=== PATIENT | female | born 1970 | race Caucasian/White ===

== ENCOUNTER 2017-05-31 09:36 | Day surgery (SDC) | payer OTHER ==
[2017-05-31] MEDS ORDERED: ceFAZolin 2 GM/50 ML 2 GM/50 ML BAG IV ONE (09:46)
[2017-05-31 10:05] LABS: HCG UR QUAL NEGATIVE
[2017-05-31] MEDS ORDERED: LACTATED RINGERS 1,000 ML IV ONE ×2 (10:10→11:48)
[2017-05-31] MEDS ORDERED: LIDOCAINE-MPF 2% 5 ML VIAL IM ONE (11:00)
[2017-05-31] MEDS ORDERED: PROPOFOL 200 MG/20 ML VIAL IVP ONE (11:00)
[2017-05-31] MEDS ORDERED: MIDAZOLAM 2 MG/2 ML VIAL IVP ONE (11:00)
[2017-05-31] MEDS ORDERED: ONDANSETRON 4 MG/2 ML VIAL IVP ONE (11:00)
[2017-05-31] MEDS ORDERED: DEXAMETHASONE 4 MG/ML VIAL IVP ONE (11:00)
[2017-05-31] MEDS ORDERED: fentaNYL 100 MCG/2 ML VIAL IVP ONE (11:00)
[2017-05-31] MEDS ORDERED: KETOROLAC 30 MG/ML VIAL IVP ONE (11:00)
[2017-05-31] MEDS ORDERED: ACETAMINOPHEN 1,000 MG/100 ML 100 ML IV ONE (11:00)
[2017-05-31] MEDS ORDERED: BUPIVACAINE 0.5% PF 30 ML VIAL SUBQ ONE (11:48)
--- NOTE | 2017-05-31 12:05 | OPERATIVE REPORT ---
Operative Report - General Procedure Date: 05/31/17 Planned Procedure: Ventral herniorrhaphy Pre-Op Diagnosis: Ventral hernia Procedure Performed: Ventral herniorrhaphy (primary) Post Op Diagnosis: Ventral hernia - Procedure Note Primary Surgeon: Trung Middleton MD Anesthesia Provider: Fermin Ramey Anesthesia Technique: General LMA, Local (30 mils of half percent Marcaine) IV Fluids (mL): 1,400 Estimated Blood Loss (mL): 5 Complications: None. - Other Other Information/Narrative: OPERATIVE DESCRIPTION/REPORT: After verbal and written informed consent was obtained detailing the risks of infection, bleeding requiring transfusion with its risks, nerve injury, and , and after I met with the patient confirming the surgery and the site of the surgery, the patient was brought to the operative suite and placed supine on the operating table. Great care was taken to avoid pressure points to prevent pressure necrosis or nerve injury. Monitoring devices were applied along with TEDs and pneumatic compressive stockings (to prevent DVT). The patient received preoperative antibiotics for surgical prophylaxis. Fermin Ramey sedated and anethetized the patient for the entire procedure. The patient was prepped and draped in the usual sterile manner. With the patient draped my initials were clearly visible. A "time in" then confirmed that the paitient was identified with 3 identifiers (name, date and medical record number), the history and physical was in the chart, the signed consent confirming the procedure was in the chart, the patient was in the correct position, the aforementioned prophylactic measures were in place or given, we had the correct personnel and equipment to complete the procedure and that anesthesia, surgery and nursing were given an opportunity to express any concerns. With the agreement of everyone in the room, we proceeded with the operation. A vertical midline incision was made overlying the mass and dissection was carried down to the hernia sac using a combination of Metzenbaum scissors, scalpel, and Bovie electrocautery. The sac was cleared of overlying adherent tissue, and the fascial defect was delineated. The fascia was cleared of any adherent tissue for a distance 1.5 cm from the defect. The sac was resected using a combination of Metzenbaum scissors and Bovie electrocautery. The defect was closed primarily using simple interrupted 0 PDS sutures in a figure- 8 fashion. The fascia, subcutaneous tissues, and skin were injected with half percent Marcaine for pain control. A total of 30 mL was used. The subcutaneous tissues were copiously irrigated, and then closed using an interrupted 2-0 Vicryl. Meticulous hemostasis was obtained using Bovie electrocautery. The skin incision was approximated with a running 4-0 Monocryl. At this point a time out was performed that confirmed that all the counts were correct, the procedure that was performed, the blood loss, the urine output, the IV fluids administered , and the patients condition. Having tolerated the procedure well, the patient was subsequently extubated and taken to recovery room in good and stable condition.
[2017-05-31 12:52] VITALS: BP 135/70
== END 2017-05-31 09:37 | disposition home or self-care (01) ==
LOC: SDS 09:36
PROVIDERS: ATTEND Surgery
PROC: 0WQF0ZZ Repair Abdominal Wall, Open Approach (ICD-10-PCS; principal; 2017-05-31 10:45)
DX: K43.9 Ventral hernia without obstruction or gangrene (principal); I10 Essential (primary) hypertension; K21.9 Gastro-esophageal reflux disease without esophagitis; Z87.891 Personal history of nicotine dependence
CPT/HCPCS: 49560; 81025; J0131; J0690; J7120

== ENCOUNTER 2017-11-30 18:51 | Emergency (ER) | payer OTHER ==
[2017-11-30 19:23] LABS: BILIRUBIN,URINE NEGATIVE (NEGATIVE); GLUCOSE, URINE (UA) NEGATIVE (NEGATIVE); KETONES,URINE (UA) TRACE mg/dL (NEGATIVE); LEUKOCYTE ESTERASE, URINE SMALL (NEGATIVE); NITRITE,URINE NEGATIVE (NEGATIVE); OCCULT BLOOD,URINE NEGATIVE (NEGATIVE); PH,URINE 5.5 PH (5.0-7.5); PROTEIN,URINE NEGATIVE (NEGATIVE); UROBILINOGEN,URINE 0.2 (NORMAL) E.U./dL (NORMAL)
[2017-11-30 19:26] LABS: CLARITY,URINE CLEAR (CLEAR); HCG UR QUAL NEGATIVE
[2017-11-30 19:38] LABS: BACTERIA,URINE Few /HPF (None Seen); RBC,URINE None Seen /HPF (0-5); SQUAMOUS EPITHELIAL CELL,UR MOD Squamous (<= Few)
[2017-11-30] MEDS ORDERED: NITROFURANTOIN MACRO 100 MG CAPSULE PO STA (20:49)
--- NOTE | 2017-11-30 20:53 | ED Physician Documentation ---
PD HPI FEMALE - Stated complaint Stated Complaint: FEMALE - Chief complaint Chief Complaint: General - History obtained from History obtained from: Patient - History of Present Illness Timing - onset: Yesterday Timing - details: Gradual onset, Still present Associated symptoms: Pelvic pain Similar symptoms before: Has not had sx before Recently seen: Not recently seen - Additional information Additional information: Patient is a 47 year old female with no significant past medical history who is presenting to the emergency department for dysuria, urinary frequency and possibly a retained tampon. Patient states that she is not sure if she took her tampon out two days ago. Review of Systems Constitutional: denies: Fever, Chills Eyes: reports: Reviewed and negative Ears: reports: Reviewed and negative Nose: reports: Reviewed and negative Throat: reports: Reviewed and negative Cardiac: reports: Reviewed and negative GI: reports: Abdominal Pain. 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 Home Medications: Ambulatory Orders Medication Instructions Recorded Confirmed Lisinopril 05/27/17 05/31/17 Nitrofurantoin Monohyd/M-Cryst 100 mg PO BID 5 Days capsule 11/30/17 [Macrobid 100 mg Capsule] - Allergies Allergies/Adverse Reactions: Allergies Allergy/AdvReac Type Severity Reaction Status Date / Time No Known Drug Allergies Allergy Verified 05/27/17 09:28 - Social History Does the pt smoke?: No Smoking Status: Never smoker Does the pt drink ETOH?: Yes Does the pt have substance abuse?: No - Immunizations Immunizations are current?: Yes PD ED PE NORMAL - Vitals Vital signs reviewed: Yes - General General: Alert and oriented X 3, No acute distress - HEENT HEENT: Atraumatic - Cardiac Cardiac: RRR - Respiratory Respiratory: No respiratory distress - Abdomen Abdomen: Soft, Non distended - Derm Derm: Normal color - Extremities Extremities: No deformity - Neuro Neuro: Alert and oriented X 3 Eye Opening: Spontaneous PD ED PE EXPANDED - Female 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 : 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, 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, Other (no foreign body appreciated) Results - Vitals Vitals: Vital Signs - 24 hr 11/30/17 19:00 Temperature 36.4 C L Heart Rate 83 Respiratory 18 Rate Blood Pressure 188/93 H O2 Saturation 100 Oxygen O2 Source Room air - Labs Labs: Laboratory Tests 11/30/17 19:17 Urine Color YELLOW Urine Clarity CLEAR Urine pH 5.5 Ur Specific [place] <=1.005 Urine Protein NEGATIVE Urine Glucose (UA) NEGATIVE Urine Ketones TRACE Urine Occult Blood NEGATIVE Urine Nitrite NEGATIVE Urine Bilirubin NEGATIVE Urine Urobilinogen 0.2 (NORMAL) Ur Leukocyte Esterase SMALL H Urine RBC None Seen Urine WBC 0-3 Ur Squamous Epith Cells MOD Squamous H Urine Bacteria Few Ur Microscopic Review INDICATED Urine Culture Comments NOT INDICATED Urine HCG, Qual NEGATIVE PD MEDICAL DECISION MAKING - ED course Complexity details: reviewed old records, reviewed results, re-evaluated patient , considered differential, d/w patient ED course: Patient was seen and examined at bedside. urine was collected. pelvic exam revealed no retained foreign body. Patient was treated with macrobid for her uti. Patient was stable for discharge with outpatient follow up. Departure - Departure Disposition: 01 Home, Self Care Clinical Impression: Urinary tract infection Condition: Good Instructions: ED UTI Cystitis Female Follow-Up: SABINA MATAMOROS [Primary Care Provider] - Within 3 Days Prescriptions: Nitrofurantoin Monohyd/M-Cryst [Macrobid 100 mg Capsule] 100 mg PO BID 5 Days capsule Comments: There was no foreign body appreciated. You were started on antibiotics today and will need to be on the for the next 5 days. You should stay well hydrated and drink plenty of water. You should follow up with your doctor if your symptoms don't improve over the next few days. You may return to the emergency department at any time for new, worsening or uncontrollable symptoms.
[2017-11-30 21:06] VITALS: BP 177/95
== END 2017-11-30 21:05 | disposition home or self-care (01) ==
LOC: ED 18:51
DX: N39.0 Urinary tract infection, site not specified (principal); I10 Essential (primary) hypertension
CPT/HCPCS: 81001; 81025; 99283; A9270; 81003; 87086

== ENCOUNTER 2020-06-30 08:07 | Emergency (ER) | payer OTHER ==
[2020-06-30 08:14] VITALS: BP 152/106
--- NOTE | 2020-06-30 08:42 | ED Physician Documentation ---
PD HPI UPPER EXT INJURY - Stated complaint Stated Complaint: RT SHOULDER INJURY - Chief complaint Chief Complaint: Trauma Ext - History obtained from History obtained from: Patient - History of Present Illness Location: Right, Shoulder Type of injury: Fall Where injury occurred: Home Timing - onset: Last night Timing - duration: Hours Timing - details: Abrupt onset, Still present Improved by: Rest, Immobilization Worsened by: Moving, Palpating Associated symptoms: No: Weakness, Numbness, Tingling, Swelling Contributing factors: No: Anticoagulated Similar symptoms before: Has not had sx before Recently seen: Not recently seen - Additonal information Additional information: Previously well 50-year-old female was in her bathroom when she turned around and tripped over a basket of laundry and hit the anterior part of her right shoulder against the door. She has pain and reduced range of motion in the right shoulder. She does not have numbness or tingling. 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 Home Medications: Ambulatory Orders Medication Instructions Recorded Confirmed lisinopriL [Lisinopril] 20 mg PO DAILY 05/27/17 06/30/20 Omeprazole 20 mg PO DAILY 06/30/20 06/30/20 - Allergies Allergies/Adverse Reactions: Allergies Allergy/AdvReac Type Severity Reaction Status Date / Time No Known Drug Allergies Allergy Verified 06/30/20 08:10 - Social History Does the pt smoke?: No Smoking Status: Never smoker Does the pt drink ETOH?: Yes Does the pt have substance abuse?: No - Immunizations Immunizations are current?: Yes PD ED PE NORMAL - Vitals Vital signs reviewed: Yes (hypertensive ) - General General: Alert and oriented X 3, No acute distress, Well developed/nourished - HEENT HEENT: Atraumatic, PERRL, EOMI - Neck Neck: No bony TTP - Respiratory Respiratory: No respiratory distress - Derm Derm: Normal color, Warm and dry, No rash - Extremities Extremities: No deformity, No edema, Other (There is tenderness to the right shoulder anteriorly and reduced ROM without crepitance. She is able to hold the arm in abduction ) - Neuro Neuro: Alert and oriented X 3, parts representative 2-12 intact, No motor deficit, No sensory deficit, Normal speech Eye Opening: Spontaneous Motor: Obeys Commands Verbal: Oriented GCS Score: 15 - Psych Psych: Normal mood, Normal affect Results - Vitals Vitals: Vital Signs - 24 hr 06/30/20 08:10 Temperature 37 C Heart Rate 86 Respiratory 18 Rate Blood Pressure 152/106 H O2 Saturation 99 Oxygen O2 Source Room air - Rads (name of study) shoulder Radiology: Prelim report reviewed (Impression: Mild to moderate AC joint osteoarthritis.), EMP read indepedently, See rad report PD MEDICAL DECISION MAKING - ED course Complexity details: reviewed results, re-evaluated patient, considered differential, d/w patient ED course: Looks like a mild AC separation on her plain films and patient has specific corresponding tenderness she is placed into a sling she is off work for this next week the expectation that she will do well with this 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 Departure - Departure Disposition: 01 Home, Self Care Clinical Impression: Shoulder separation Condition: Stable Instructions: ED Sprain AC Joint Follow-Up: Israel Cline MD [Primary Care Provider] - Comments: Wear the sling for comfort and expect improvement over the next 2 weeks. You will likely be able to do some lifting with your arms at your side within the week. Forms: Activity restrictions
--- NOTE | 2020-06-30 09:21 | XRAY Report ---
PROCEDURE: Shoulder 3 View RT INDICATIONS: fall/trauma TECHNIQUE: 3 views of the shoulder were acquired. COMPARISON: None. FINDINGS: Bones: No fractures or dislocations but there is mild to moderate osteoarthritis at the AC joint. N o suspicious bony lesions. Visualized ribs appear intact. Soft tissues: No suspicious soft tissue calcifications. IMPRESSION: Mild to moderate AC joint osteoarthritis. Reviewed by: Cesar Hernandez MD on 06/30/2020 9:20 AM [facility] Approved by: Cesar Hernandez MD on 06/30/2020 9:20 AM [facility] Station ID: [id number]
== END 2020-06-30 09:37 | disposition home or self-care (01) ==
LOC: ED 08:07
DX: S43.101A Unspecified dislocation of right acromioclavicular joint, initial encounter (principal); W01.198A Fall on same level from slipping, tripping and stumbling with subsequent striking against other object, initial encounter; Y92.002 Bathroom of unspecified non-institutional (private) residence as the place of occurrence of the external cause; M19.011 Primary osteoarthritis, right shoulder; I10 Essential (primary) hypertension
CPT/HCPCS: 99282; 99283

== ENCOUNTER 2022-01-18 17:01 | Emergency (ER) | payer OTHER ==
[2022-01-18] MEDS ORDERED: ASPIRIN CHEW 81 MG TABLET PO STA (17:10)
--- NOTE | 2022-01-18 17:25 | ED Physician Documentation ---
PD HPI CHEST PAIN - Stated complaint Stated Complaint: CHEST PX,SOA - Chief complaint Chief Complaint: Cardiac - History obtained from History obtained from: Patient - Additional information Additional information: 51-year-old woman with history of hypertension, otherwise no identifiable risk factors for coronary disease presents with 3 days of sharp left upper nonradiating chest pain. She notices it most at rest and actually seems to get better with exertion or activity. She is short of breath with it. Has very mild nausea today. No sweats, fatigue, or dizziness. Has never had this before. Does not smoke, no high cholesterol, no known family history of coronary disease except maybe in a grandfather at advanced age. 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 Medications Home Medications: Ambulatory Orders Medication Instructions Recorded Confirmed lisinopriL [Lisinopril] 20 mg PO DAILY 05/27/17 06/30/20 Omeprazole 20 mg PO DAILY 06/30/20 06/30/20 - Allergies Allergies/Adverse Reactions: Allergies Allergy/AdvReac Type Severity Reaction Status Date / Time No Known Drug Allergies Allergy Verified 01/18/22 17:08 - Social History Does the pt smoke?: No Smoking Status: Never smoker Does the pt drink ETOH?: Yes Does the pt have substance abuse?: No - Immunizations Immunizations are current?: Yes PD ED PE NORMAL - Vitals Vital signs reviewed: Yes - General General: Alert and oriented X 3, No acute distress - HEENT HEENT: PERRL, EOMI - Neck Neck: Supple, no meningeal sign, No bony TTP - Cardiac Cardiac: RRR, No murmur - Respiratory Respiratory: No respiratory distress, Clear bilaterally - Abdomen Abdomen: Non tender - Extremities Extremities: No edema, No calf tenderness / cord - Neuro Neuro: Alert and oriented X 3, Normal speech Results - Vitals Vitals: Vital Signs - 24 hr 01/18/22 01/18/22 17:05 18:06 Heart Rate 95 75 Respiratory 18 16 Rate Blood Pressure 197/103 H 158/83 H O2 Saturation 97 98 Oxygen O2 Source Room air - EKG (time done) 1711 Rate: Rate (enter#) (87) Rhythm: NSR, LAE [place]: LAD Intervals: Normal [place] QRS: Normal Ischemia: Normal ST segments - Labs Labs: Laboratory Tests 01/18/22 01/18/22 01/18/22 17:27 17:27 17:27 WBC 5.2 RBC 4.10 L Hgb 13.2 Hct 37.7 MCV 92.0 MCH 32.2 H MCHC 35.0 RDW 13.6 Plt Count 231 MPV 10.0 Neut # (Auto) 3.6 Lymph # (Auto) 1.0 L [place] # (Auto) 0.4 Eos # (Auto) 0.1 Baso # (Auto) 0.1 Absolute Nucleated RBC 0.00 Nucleated RBC % 0.0 D-Dimer Sodium 136 Potassium 3.4 L Chloride 102 Carbon Dioxide 23 Anion Gap 11.0 BUN 17 Creatinine 0.8 Estimated GFR (MDRD) 76 L Glucose 89 Calcium 9.0 Total Bilirubin 0.7 AST 22 ALT 17 Alkaline Phosphatase 50 Troponin I High Sens 4.0 Total Protein 7.0 Albumin 4.3 Globulin 2.7 Albumin/Globulin Ratio 1.6 Lipase 32 01/18/22 17:38 WBC RBC Hgb Hct MCV MCH MCHC RDW Plt Count MPV Neut # (Auto) Lymph # (Auto) [place] # (Auto) Eos # (Auto) Baso # (Auto) Absolute Nucleated RBC Nucleated RBC % D-Dimer < 200.0 L Sodium Potassium Chloride Carbon Dioxide Anion Gap BUN Creatinine Estimated GFR (MDRD) Glucose Calcium Total Bilirubin AST ALT Alkaline Phosphatase Troponin I High Sens Total Protein Albumin Globulin Albumin/Globulin Ratio Lipase PD MEDICAL DECISION MAKING - ED course ED course: Heart score 1. PERC positive because of resting tachycardia but D-dimer negative. Departure - Departure Disposition: 01 Home, Self Care Clinical Impression: Chest pain Condition: Good Record reviewed to determine appropriate education?: Yes Instructions: ED Chest Pain Atypical Unkn Cause Comments: You were seen today for chest pain, your EKG, troponin and D-dimer were negative suggesting strongly against a serious etiology. Return for new or worsening symptoms and follow-up with your primary care physician, next available appointment. Discharge Date/Time: 01/18/22 18:08
[2022-01-18 17:32] LABS: BASOPHILS # (AUTO) 0.1 10^3/uL (0.0-0.1); EOSINOPHILS # (AUTO) 0.1 10^3/uL (0.0-0.7); EOSINOPHILS % (AUTO) 2.1 %; HCT - HEMATOCRIT 37.7 % (37.0-47.0); HGB - HEMOGLOBIN 13.2 g/dL (12.0-16.0); LYMPHOCYTES % (AUTO) 19.7 %; MEAN CORPUSCULAR HEMOGLOBIN 32.2 pg (27.0-31.0); MONOCYTES # (AUTO) 0.4 10^3/uL (0.0-1.0); MONOCYTES % (AUTO) 7.3 %; NEUTROPHILS # (AUTO) 3.6 10^3/uL (1.5-6.6); NEUTROPHILS % (AUTO) 69.7 %; PLT - PLATELET COUNT 231 10^3/uL (130-450); RED CELL DISTRIBUTION WIDTH 13.6 % (12.0-15.0); WHITE BLOOD COUNT 5.2 x10^3/uL (4.8-10.8)
[2022-01-18 17:46] LABS: ALBUMIN 4.3 g/dL (3.2-5.5); ALBUMIN/GLOBULIN RATIO 1.6 (1.0-2.2); BILIRUBIN,TOTAL 0.7 mg/dL (0.2-1.0); CREATININE 0.8 mg/dL (0.4-1.0); POTASSIUM 3.4 mmol/L (3.5-5.0)
--- NOTE | 2022-01-18 18:03 | XRAY Report ---
PROCEDURE: Chest 1 View X-Ray INDICATIONS: Chest Pain TECHNIQUE: One view of the chest was acquired. COMPARISON: 05/05/2015 FINDINGS: Surgical changes and devices: None. Lungs and pleura: No pleural effusions or pneumothorax. Lungs are clear. Mediastinum: Mediastinal contours appear normal. Heart size is normal. Bones and chest wall: No suspicious bony lesions. Overlying soft tissues appear unremarkable. IMPRESSION: No acute cardiopulmonary disease process. Reviewed by: Kasia Snell MD, PhD on 01/18/2022 6:02 PM PDT Approved by: Kasia Snell MD, PhD on 01/18/2022 6:02 PM PDT Station ID: [id number]
[2022-01-18 18:08] VITALS: BP 158/83
== END 2022-01-18 18:08 | disposition home or self-care (01) ==
LOC: ED 17:01
DX: R07.9 Chest pain, unspecified (principal)
CPT/HCPCS: 36415; 71045; 80053; 83690; 84484; 85025; 85379; 93005; 99282; 99284; A9270

== ENCOUNTER 2022-06-09 07:03 | Outpatient (CLI) | payer OTHER ==
--- NOTE | 2022-06-10 10:28 | MRI Report ---
PROCEDURE: Knee LT W/O INDICATIONS: LEFT KNEE PAIN TECHNIQUE: Noncontrast sagittal PD fast spin echo and T2 fast spin echo with fat saturation, sagittal 3-D gradie nt sequence with fat saturation; coronal T1 spin echo and PD fast spin echo with fat saturation, and axial PD fast spin echo with fat saturation through the knee. COMPARISON: None. FINDINGS: Image quality: Some motion degradation Menisci Medial: Horizontal tear of the medial meniscus involving the posterior horn. There is superimposed fr aying. There is high signal in the posterior root without complete tear. The meniscocapsular junction is intact. Lateral: Intact. Meniscopopliteal fascicles maintained. Cruciate ligaments: Intact Medial structures MCL: Mildly high proximal ligamentous signal and trace periligamentous edema. Pes anserine tendons: Intact Semimembranosus: Intact Lateral structures LCL: Mildly high signal at the proximal aspect Biceps femoris: Intact IT band: Intact Popliteus tendon: Intact Anterior structures Extensor mechanism: Mild prepatellar edema. Extensor mechanism is otherwise intact. Fat pads: Edema in the superolateral corner of Hoffa's fat pad. Medial retinaculum: Intact. Trochlea: Relatively shallow. TT TG distance is 2 cm. Bone and joint Bones: Serpiginous signal abnormality at the proximal tibia, possibly bone infarct. No confluent area of edema. No dislocation. Cartilage: Mild to moderate medial compartment cartilage heterogeneity. This also involves the latera l compartment. High-grade chondromalacia of the patellofemoral compartment. Nearly full-thickness los s of the lateral facet with large osteophyte formation. The cartilage of the median ridge is also str ipped. High-grade cartilage loss of the femoral trochlea. There is underlying marrow edema in multipl e regions. Joint space: Mild joint effusion. Multiple suspected loose bodies and synovial hypertrophy are suspec laci joint. Parrish's cyst: Small Parrish's cyst. Soft tissues: No significant vascular or other soft tissue pathology. IMPRESSION: High-grade degeneration of the patellofemoral compartment, with multifocal full-thickness cartilage l oss and multifocal marrow edema. Imaging suggestion of abnormal patellar tracking with enlarged TT TG distance and shallow trochlea. Corresponding edema is seen in the superolateral corner of Hoffa's fa t pad. There is also some prepatellar edema. Small joint effusion with multiple suspected loose bodies and synovial hypertrophy. Horizontal tear of the posterior horn of the medial meniscus and high edema signal near the root. Possible prior sprain of the collateral ligaments. Cruciate ligaments are intact. Serpiginous signal abnormality in the proximal posterior tibia is indeterminate, possibly may be from bone infarcts. Reviewed by: Rangel Jones MD on 06/10/2022 10:26 AM PDT Approved by: Rangel Jones MD on 06/10/2022 10:26 AM PDT Station ID: [id number]
== END 2022-06-09 07:04 | disposition home or self-care (01) ==
LOC: DI 07:03
PROVIDERS: ATTEND Physician Assistant
DX: S83.242A Other tear of medial meniscus, current injury, left knee, initial encounter (principal); M23.8X2 Other internal derangements of left knee; M25.462 Effusion, left knee; M94.262 Chondromalacia, left knee

== ENCOUNTER 2023-12-02 15:37 | Outpatient (CLI) | payer OTHER ==
--- NOTE | 2023-12-02 16:09 | Sleep Patient Instructions ---
Sleep Center Visit Summary - Patient Visit Information Reason for Visit: Initial consult for evaluation of sleep disordered breathing and other sleep issues. - Patient Instructions Instructions Attached: Sleep Study Additional Instructions: You will be completing a sleep study, either an in-lab polysomnography (PSG) or home sleep study (HST). You will follow-up in the sleep care office after the sleep study is completed to hear the results and talk about therapy, if needed. You will be called by our office staff to schedule this appointment, but you may contact us with any questions. - Clinic Information Contact: [facility] [address] [place] [address] [email or web address] T: [phone]
--- NOTE | 2023-12-02 16:13 | SLEEP CARE CONSULTATION ---
Information from patient questionnaire entered by Teresita Burciaga. I have reviewed and concur with the information entered by Teresita Burciaga. This document represents the service I personally performed and the decisions made by me, Dea Hallman ARNP. History of Present Illness Service Date and Time: 12/02/2023 1537 Reason for Visit: New patient Chief Complaint: reports: Frequent awakenings at night, Other (RAPID HEART RATE PRIMARILY WHILE SLEEPING) Date of Onset: 12/2021 Usual bedtime: 0484-0875 Time it takes to fall asleep: 15-20MIN Snores at night: Yes Observed to quit breathing while asleep: No Sleeps alone due to snoring: No Number of times waking at night: 5-6 Reasons for waking at night: reports: Snoring, Pain, Bathroom, Other (HEART BURN, RAPID HEART RATE, ACID REFLUX). denies: Choking, Gasping for air Toss, Turn, or Twitch while sleeping: Yes Recalls having dreams: Yes Usually gets out of bed at: 2561-1325; weekends 0800 Feels refreshed in the morning: No Morning headache: No Sleepy or fatigued during the day: Yes Ever fallen asleep while driving: No Takes day naps: No Dreams during day naps: Yes Prior sleep studies: No Additional HPI information: I had the pleasure of seeing SHARON MAGDALENO today regarding the possibility of her having a sleep disorder. Her current complaints are frequent night awakenings and a rapid heart rate primarily while sleeping. She says her has told her she snores loudly. She has woke herself up with her snoring. She says she has hip pain and when she sleeps on her back she snores more. She says she has been having an elevated heart rate and went to the ED. She was eventually sent to information director and they noted that the heart rate will increase mostly when she is sleeping/middle of night. She does not normally wake up feeling refreshed and she does have some fatigue during the day. She normally cannot take a nap because if she lays down she cannot fall asleep. She does feel she wakes up frequently at night and sometimes she will wake up and not be able to fall asleep. She will lay in bed for 1 to 2 hours before either falling asleep or getting out of bed. She does have a sibling who is on a CPAP machine. - Parasomnia Symptoms Ever been unable to move upon waking from sleep: No Walks in sleep: No Talks in sleep: Yes (not often) Ever acted out dreams in sleep: No Ever felt weak in the knees when startled or emotional: No Bothered by creepy, crawly, restless sensations in legs: No Problems with memory or concentration: No Subjective Initial [place] Sleepiness Scale score: 6 (11/13/23) Past Medical History Past Medical History: reports: Hypertension, Gout, GERD, Other (Cervantes's syndrome) Social History The patient's occupation is a [employer]. Patient is and lives in [place]. Have you smoked in the past 12 months: No Cigarettes per day (20/pack): 20 Years of smokin Quit date: 1998 Smoking Pack Years: 10.0 Alcohol use: Yes Alcohol amount and frequency: 3 DAILY Caffeine use: Yes Caffeine amount and frequency: 1 CUP DAILY Family History Family history of sleep disordered breathing: Yes Family Hx Sleep Apnea: Sibling: Snoring, Sleep apnea - Treated Allergies and Home Medications Known drug allergies: No Drug allergies reviewed: Yes Home medication list reviewed: Yes (as listed) Allergy and home medication list: Allergies No Known Drug Allergies Allergy (Verified 11/30/23 11:45) Home Medications Medication Instructions Recorded Confirmed Last Taken Type lisinopriL [Lisinopril] 20 mg PO DAILY 05/27/17 12/02/23 05/30/17 History Cholecalciferol (Vitamin D3) See Rx Instructions .ROUTE .COMPLEX 12/02/23 12/02/23 Unknown History [Vitamin D3] Ferrous Bis-Glycinate Chelate See Rx Instructions .ROUTE .COMPLEX 12/02/23 12/02/23 Unknown History [Iron Bisglycinate] Pepcid AC See Rx Instructions .ROUTE .COMPLEX 12/02/23 12/02/23 Unknown History Review of Systems Weight gain over past 5 years: 10 Cardiovascular: reports: high blood pressure, palpitations, irregular heart rate or pulse Respiratory: reports: wheeze Gastrointestinal: reports: heartburn, other (REFLUX) Neurological: denies: headaches Psychiatric: denies: anxiety, depression Ear/Nose/Throat: reports: wisdom teeth removed. denies: tonsillectomy Endocrine: reports: sluggishness Musculoskeletal: reports: joint pain, back pain, joint swelling Immunologic: reports: sneezing, itching, allergies to food or environment (seasonal allergies) Physical Exam Vital signs obtained and entered by: TERESITA Gutiérrez MA Blood Pressure: 160/91 (LEFT ARM) Cuff size: regular Heart Rate: 75 O2 Saturation: 97 Height: 5 ft 3 in Weight: 237 lb Body Mass Index: 42.0 BMI Classification: Morbidly Obese Neck circumference: 15.75 Nostrils: patent to airflow Mouth and throat: narrow oropharynx Soft palate: long Hard palate: normal Uvula: normal Uvula visualization: 25% Mallampati Class III Tongue: enlarged in size with teeth beth on lateral edges Tonsils: 1+ Neck: normal w/o lymphadenopathy or thyromegaly Heart: regular rate and rhythm Lungs: clear bilaterally Impression and Plan 1. Suspected Obstructive Sleep Apnea-Hypopnea Syndrome, as suggested by a history of loud and irregular snoring, frequent awakening during the night and unrefreshed sleep. Narrow oropharynx and obesity are common predisposing factors for obstructive sleep apnea-hypopnea syndrome. I recommend proceeding to polysomnography to confirm the diagnosis and to assess severity. If the patient has significant sleep disordered breathing, a manual CPAP titration study will also be performed to find the optimal treatment pressure. I informed the patient of what the sleep studies involve and after some discussion, obtained agreement to proceed. The pathophysiology of obstructive sleep apnea-hypopnea syndrome was discussed with the patient and health risks of cardiovascular and cerebrovascular disease if not treated. Risks of drowsy driving discussed in detail and patient advised to avoid long distance driving and to candy puller at the first sign of drowsiness. Patient agreed to plan. * Schedule polysomnography . * Avoid long distance driving or driving when feeling sleepy. * Avoid alcohol, sedative and muscle relaxant around bedtime. * Attempt to lose weight. * Review instructions provided by trained office staff on how to prepare for the sleep study. * Return for follow-up after sleep study completed. Counseling Topics: Weight loss health impact Follow up with Sleep Care in: other (to review sleep study results) Plan: PSG Visit Type: In Office Time Spent with Patient (minutes): 30 Provider Statement: I spent 100% of the Face to Face Visit with the patient with greater than 50% spent counseling the patient and coordination of care.
[2023-12-02 16:27] VITALS: BP 160/91; O2SAT 97
== END 2023-12-02 15:38 | disposition home or self-care (01) ==
LOC: SC 15:37
PROVIDERS: ATTEND Nurse Practitioner Family
DX: R06.83 Snoring (principal); G47.8 Other sleep disorders; R53.83 Other fatigue; E66.01 Morbid (severe) obesity due to excess calories; Z68.41 Body mass index [BMI] 40.0-44.9, adult; Z87.891 Personal history of nicotine dependence
CPT/HCPCS: 99203; 99212

== ENCOUNTER 2024-01-03 20:34 | Outpatient (CLI) | payer OTHER | END 2024-01-03 20:35 | disposition home or self-care (01) | LOC: SC 20:34 | PROVIDERS: ATTEND Nurse Practitioner Family | DX: R06.83 Snoring (principal); G47.8 Other sleep disorders; E66.9 Obesity, unspecified; I10 Essential (primary) hypertension | CPT/HCPCS: 95810 ==

== ENCOUNTER 2024-02-07 14:34 | Outpatient (CLI) | payer OTHER ==
--- NOTE | 2024-02-07 14:53 | Sleep Patient Instructions ---
Sleep Center Visit Summary - Patient Visit Information Reason for Visit: Sleep study follow-up - Patient Instructions Instructions Attached: Snoring Tips Prevent Additional Instructions: Your sleep study today was negative for significant sleep disordered breathing. You were found to have episodes of snoring. There are different ways to control snoring including weight loss, oral devices made by a dentist or surgical options through ENT specialist. You should not use oral devices that do not fit properly because they can affect your bite. You should also check insurance coverage of oral devices for snoring because they may not be cover well. You may obtain a referral to an ENT specialist through your primary provider. Follow-up as needed. - Clinic Information Contact: [facility] [address] [place] [address] [email or web address] T: [phone]
--- NOTE | 2024-02-07 14:57 | SLEEP CARE CONSULTATION ---
Information from patient questionnaire entered by Precious Burciaga. I have reviewed and concur with the information entered by Precious Burciaga. This document represents the service I personally performed and the decisions made by , Dea Hallman ARNP. History of Present Illness Service Date and Time: 02/07/2024 143 Initial [place] Sleepiness Scale score: 6 (11/13/23) Current [place] Sleepiness Scale score: 4 Additional HPI information: SHARON MAGDALENO returns for follow up and results of the recently performed polysomnography. The patient was informed of the following findings: No significant sleep disordered breathing with an average AHI of 4.5 and edgardo oxygen saturation of 85%. I explained the pathophysiology behind obstructive sleep apnea. Patient does not have sleep apnea and was advised how weight gain could increase the risk of developing sleep apnea in the future. I strongly encouraged the patient to lose weight. Patient has light snoring. Snoring can be reduced by weight loss. Weight loss is best achieved with diet consult. Patient instructed to contact PCP for referral. Snoring can also be treated with an oral appliance from a dentist. Advised to check insurance coverage. In addition, an ENT evaluation can be do to see if other treatment is indicated. Patient counseled not drink alcohol less than 4 hours before bedtime as it can increase snoring and apnea. Patient was cautioned about risks of drowsy driving until sleepiness symptoms resolve. Patient denies drowsy driving. Sleep Study - Results Type of Sleep Study: Polysomnography (COMPLETED 01/03/24) Prior sleep studies: No Polysomnography/Home Sleep Study results: IMPRESSION: The quality of the study is good. The patient had reduced sleep efficiency. The sleep architecture was abnormal for sleep fragmentation and reduced amount of time spent in slow wave sleep (N3). Respiratory monitoring showed no significant sleep disordered breathing (AHI = 4.5) or hypoxia (edgardo oxygen saturation of 85% and only 2% to the total sleep time was spent with oxygen saturation below 90%). The few respiratory events occurred mainly during REM sleep. The patient did not sleep supine during this study (supine AHI = 0.0; nonsupine = 4.98). Snore was light to loud in intensity. There was no significant periodic leg movement of sleep. Cardiac rhythm was normal sinus rhythm without significant arrhythmia. No abnormal behavior (parasomnia) observed during the night. Allergies and Home Medications Known drug allergies: No Drug allergies reviewed: Yes Home medication list reviewed: Yes (no changes) Allergy and home medication list: Allergies No Known Drug Allergies Allergy (Verified 02/03/24 13:28) Review of Systems Review of systems same as previous: Yes (no changes) Physical Exam Vital signs obtained and entered by: DEA MEJIA Blood Pressure: 153/92 (usually high at doctors office) Cuff size: long (right arm) Heart Rate: 84 O2 Saturation: 96 Height: 5 ft 3 in Weight: 234 lb 12.8 oz Body Mass Index: 41.5 BMI Classification: Morbidly Obese Impression and Plan 1. Snoring but no significant sleep disordered breathing. However patient cautioned to avoid sleeping supine since we could not rule out sleep apnea when sleeping on her back. She stated that she tries to avoid sleeping on her back anyway because that will definitely wake her up from the snoring. I encouraged her to continue to avoid sleeping supine. Patient advised that often weight loss will reduce snoring as well as apnea risk. An oral appliance can also be used for snoring. This would require a dental consultation. Patient cautioned not to use other online appliances as can cause bite issues. Patient is advised to check if insurance will cover. An ENT consult can also be helpful to determine if any other treatment is an option. 2. Obesity, unspecified. Currently patients BMI is 41.5. Obesity increases the risk of apnea, CPAP pressure requirements and overall health risks especially cardiovascular and diabetes. Thus patient is advised to lose weight. * Attempt to lose weight * Avoid sleeping supine * Avoid alcohol consumption near bedtime * The patient is cautioned about driving until sleepiness is completely resolved. * Return as needed for follow up. Counseling Topics: Weight loss health impact Follow up with Sleep Care in: as needed Visit Type: In Office Time Spent with Patient (minutes): 18 Provider Statement: I spent 100% of the Face to Face Visit with the patient with greater than 50% spent counseling the patient and coordination of care.
[2024-02-07 15:05] VITALS: BP 153/92; O2SAT 96
== END 2024-02-07 14:35 | disposition home or self-care (01) ==
LOC: SC 14:34
PROVIDERS: ATTEND Nurse Practitioner Family
DX: R06.83 Snoring (principal); E66.01 Morbid (severe) obesity due to excess calories; Z68.41 Body mass index [BMI] 40.0-44.9, adult
CPT/HCPCS: 99212